=== PATIENT | female | born 1995 | race Caucasian/White ===

== ENCOUNTER 2018-11-10 23:27 | Emergency (ER) | payer BC ==
[~2018-11-10] VITALS: Ht 154.9 cm; Wt 47.6 kg
--- NOTE | 2018-11-11 00:13 | NUR ---
PT SLEEPING IN GURNEY. NO SIGNS OF DISTRESS NOTED. PT VITAL SIGNS STABLE. BREATHS EQUAL AND UNLABORED. GURNEY IN LOWEST POSITIONS WITH SIDERAILS UP. CALL LIGHT WITHIN REACH. WILL CONT TO MONITOR PT.
--- NOTE | 2018-11-11 02:39 | NUR ---
PT RESTING COMFORTABLY IN BED. EASILY AROUSABLE. AAOX4. VITAL SIGNS STABLE. WILL CONTINUE TO MONITOR
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
--- NOTE | 2018-11-11 03:55 | NUR ---
ULISES (FRIEND): [phone] MULTIPLE ATTEMPTS TO CONTACT FOR [employer]OR [employer] SALES, NO ANSWER
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
[2018-11-11 04:21] VITALS: BP 124/86
== END 2018-11-11 04:22 | disposition home or self-care (01) ==
LOC: ER 23:30
DX: F10.129 Alcohol abuse with intoxication, unspecified (principal); Y90.9 Presence of alcohol in blood, level not specified
CPT/HCPCS: 82962-TC